=== PATIENT | male | born 1970 | race Caucasian/White ===

== ENCOUNTER 2017-01-08 06:48 | Outpatient (CLI) | payer MEDICARE ==
[~2017-01-08] VITALS: Ht 182.9 cm; Wt 119.0 kg
--- NOTE | ~2017-01-08 | CATH ---
Cardiac Diagnostic + PCI Report Demographics Patient Name EDD Yadav Gender Male Date of 1970 Age 46 year(s) Patient Number [id number] Date of Study 01/08/2017 Visit Number [id number] Room Number G6308 [place] [id number] Ht 182.88 cm Wt 111.2 kg Referring Sophie Clifford MD Primary Physician Physician Performing Sophie Clifford MD Secondary Physician Physician Diagnostic Sophie Clifford MD Assisting Physician Physician Interventional Sophie Clifford MD Physician Director Account Management Physician Findings and Conclusions Diagnostic Findings and Conclusion 2 vessel disease High grade RCA stenosis. Diagnostic Recommendations PTCA RCA. Interventional Findings and Conclusion 0.019 Prowater. 3.5 x 15 Emerge, 4.0 x 15 Emerge. 4.0 x 10 Flextome cutting balloon to 4.2. Interventional Recommendations Post Angioseal. Risk Factor modification. Procedure Description The patient was brought to the diagnostic cardiac catheterization-EP laboratory in the fasting, non-sedated state. Informed consent was obtained in the written and verbal form after the risks and benefits were explained. The patient had no further questions and agreed to proceed. The planned puncture-incision site(s) were shaved and prepped with ChloraPrep and draped in the usual sterile manner. Conscious sedation, supplemental oxygen, and pain control medications were delivered by a registered nurse under physician guidance. Surface ECG rhythm, blood pressure measurement, and pulse oximetry were monitored throughout the procedure. Arterial access. The access site was infiltrated with lidocaine. The vessel was entered with the Seldinger technique. A sheath was advanced into the vessel and used for catheter placement. Selective left coronary angiography. A catheter was advanced into the left coronary vessel ostium under Fluoroscopic guidance. Contrast was injected by hand. Images were obtained in multiple projections. Selective right coronary angiography. A catheter was advanced into the right coronary vessel ostium under fluoroscopic guidance. Contrast was injected by hand. Images were obtained in multiple projections. Left heart catheterization with ventriculography. A catheter was advanced across the aortic valve to the left ventricle under fluoroscopic guidance. Resting hemodynamics were obtained. With the catheter at the left ventricular apex, contrast was injected. Images were obtained in PALAUAN projections. Post-ventriculography LV pressure was obtained. The catheter was gradually withdrawn into the aorta with continuous pressure recording. Angioplasty: A guiding catheter was used to intubate the vessel. A 0.14 wire was used to cross the lesion. A balloon was positioned across the lesion and inflated. Post placement angiograms were performed. Arterial artery hemostasis was achieved. The patient was transferred to a regular nursing floor via cart accompanied by a nurse. The patient left the laboratory in stable condition. Diagnostic Cath Status: Elective Interventional Cath Status: Elective Procedure Procedure Type PCI procedure:PTCA:, RCA Indications: Chest pain. The procedure was explained in detail to the patient. Risks, complications and alternative treatments were reviewed. Written consent was obtained. Medications Reviewed with Patient prior to Procedure. Angiographic Findings Dominance: Mixed Cardiac Arteries and Lesion Findings LMCA: Normal (0% Stenosis).Large, normal. LAD: competitive flow. Diagonal small, ok. Lesion on Mid LAD: 70% stenosis .The lesion was discrete.Culprit lesion. LCx: Normal (0% Stenosis).Large, dominant, normal. OM 1 small. OM2 large, normal. RCA: Large, previous stents. Mid 90-95% ISR. Distal good.There is a previous stent on Dist RCA. There is a previous stent on Mid RCA. Lesion on Mid RCA: Mid subsection.95% stenosis 15 mm length reduced to 0%. Pre procedure MATTEO III flow was noted. Post Procedure MATTEO III flow was present. The guidewire cross was successful.The lesion was diagnosed as a high risk lesion.Culprit lesion. The lesion was previously treated on 10/03/2016 with the following techniques: a balloon and drug eluting stent. This is in-stentrestenosis. Treatment results:Interventional treatment was successful. Devices used - Prowater Wire .014 x 180. Number of passes: 1. - Emerge Balloon 3.5 x 15. 2 inflation(s) to a max pressure of: 12 selma. - Emerge Balloon 4.0 x 15. 2 inflation(s) to a max pressure of: 12 selma. - Flextome Balloon 4.0 x 10. Diameter: 4 mm. Length: 10 mm. 2 inflation(s) to a max pressure of: 11 selma. Cardiac Grafts - There is a graft that originates at the CORTES and attaches to the Dist LAD (CORTES - LAD. Patent with with disease. [place] LAD small.). - There is a graft that originates at the Aorta Left and attaches to the 1st Diag (SVG-Diag large, normal. ). Coronary Tree Procedure Data Procedure Date Date: 01/08/2017Start: 09:31 AMEnd: 10:21 AM Entry Locations - Retrograde Percutaneous access was performed through the Right Femoral artery (Primary location). A 6 Fr sheath was inserted. Hemostasis was successfully obtained using Angio-Seal STS PLUS (St. Krish). Closure Comments: Deployed by RT. Gogo. Procedure Medications Order and Administration + + + + + !Time !Medication !Dosage !Route ! + + + + + !01/08/2017 09:28 !Fentanyl !50 mcg !I.V. ! !AM ! ! ! ! + + + + + 01/08/2017 09:31 !Versed !1 mg !I.V. ! !AM ! ! ! ! + + + + + 01/08/2017 09:47 !Angiomax (Bivalirudin) !82.5 mg !I.V. bolus ! !AM !(ACC_5) ! ! ! + + + + + !01/08/2017 09:47 !Angiomax (Bivalirudin) !1.75 mg/kg/hr!I.V. drip ! !AM !(ACC_5) ! ! ! + + + + + !01/08/2017 09:55 !Nipride !50 mcg !I.C. ! !AM ! ! ! ! + + + + + !01/08/2017 10:00 !Nipride !50 mcg !I.C. ! !AM ! ! ! ! + + + + + !01/08/2017 10:05 !Nipride !50 mcg !I.C. ! !AM ! ! ! ! + + + + + !01/08/2017 10:11 !Nipride !75 mcg !I.C. ! !AM ! ! ! ! + + + + + !01/08/2017 10:13 !Angiomax (Bivalirudin) ! !I.V. drip ! !AM !(ACC_5) ! ! ! + + + + + Devices Used - A6 Fr. BS JL 4 Diag. Catheterwas used for:Left coronary angiography. - A6 Fr. BS JR 4 Diag. Catheterwas used for:Right coronary angiography. - A6 Fr. BS IMT Diag. Catheterwas used for:CORTES. - A6 Fr. BS Angled Pigtail Diag. Catheterwas used for:LV Pressures. - A6 Fr. JR4 Guide Catheterwas used for:RCA Intervention. Contrast Material - Isovue [id number] ml Fluoroscopy Time: Diagnostic: 12:24 minutes. Total: 12:24 minutes. Fluoroscopy Dose: Diagnostic: 2026 mGy. Total: 2026 mGy. Estimated Blood Loss: 5.2 ml. Additional [facility] PCI Information PCI Indication:PCI for high risk Non-STEMI or unstable angina. Medical History Allergies - No known allergies. Risk Factors The patient risk factors include:prior PCI on 10/03/2016; prior CABG on 07/16/2011;hypertension, family history of premature CAD, last creatinine: 1.1 mg/dl, creatinine clearance: 131.98 ml/min, dyslipidemia and former tobacco use. Admission Data Admission Date: 01/08/2017 Admission Time: 06:48 AM Admit Source: Other Insurance Payors: Medicare. Admission Medications + +------+------+ + + + + !Medication !Dosage!Times !Last !Last !Administered !Comments ! ! ! !Per !Delivery !Delivery ! ! ! ! ! !Day !Date !Time ! ! ! + +------+------+ + + + + !Aspirin ! ! ! ! !Yes ! ! !(any) ! ! ! ! ! ! ! + +------+------+ + + + + !Beta ! ! ! ! !Yes ! ! !Vu ! ! ! ! ! ! ! !(any) ! ! ! ! ! ! ! + +------+------+ + + + + !Prasugrel ! ! ! ! !Yes ! ! + +------+------+ + + + + !Statin ! ! ! ! !Yes ! ! !(any) ! ! ! ! ! ! ! + +------+------+ + + + + Clinical Evaluation Leading to Procedure - The patient's CAD presentation was assessed as: Unstable angina. - The patient's anginal syndrome during the past two weeks was assessed as: Class III according to the [place] Cardiovascular Society Classification System (CCS). Anti-anginal medications were prescribed during the past two weeks. The medications are: Beta Blockers, Long Acting Nitrates and Ranolazine. VA LV function assessed as:Normal. Ejection Fraction - Method: LV gram. EF%: 60. Hemodynamics Condition: Rest Estimated: Heart Rate: 53 bpm Pressures (mmHg) +-----+ + !Site !Pressure ! +-----+ + !AO !94/62 (77) ! +-----+ + !AO !87/62 (74) ! +-----+ + !AO !108/69 (87) ! +-----+ + !LV !116/0 ,36 ! +-----+ + !LV !117/-2 ,24 ! +-----+ + !LV !134/5 ,24 ! +-----+ + !LV !109/3 ,26 ! +-----+ + !LV !119/10 ,21 ! +-----+ + !LV !114/13 ,24 ! +-----+ + !AO !121/72 (94) ! +-----+ + !LV !114/13 ,24 ! +-----+ + Valve Gradients and Areas + +---------+---------+---------+ +---------+ + !Valve !Peak !Mean !Area !Index !Flow !Source ! + +---------+---------+---------+ +---------+ + !Aortic !0 !0 ! ! ! ! ! + +---------+---------+---------+ +---------+ + !Aortic !0 !0 ! ! ! ! ! + +---------+---------+---------+ +---------+ + Shunts Oxygen Values O2 Capacity 205.36 Discharge Data Discharge Date: 01/09/2017 Hospital Status: Outpatient Signatures dtt: Darrin Barrios (cardio) dtd: 01/08/17 0931 Physician Self Edit
[~2017-01-08 06:48] MED LIST: ASPIRIN325 MG PO; CRESTOR20 MG PO; DURAGESIC 25MC25 MCG TOP; DURAGESIC 50MC50 MCG TOP; DURAGESIC 75MC75 MCG TOP; EFFIENT10 MG PO; HYDROCODON-ACE1 EAC4 PO; IMDUR30 MG PO; IMDUR60 MG PO; KLONOPIN0.5 M1 PO; LAMICTAL XR100 MG PO; LAMICTAL XR50 MG PO; LIPITOR20 M1 PO; LIPITOR80 MG PO; LOPRESSOR25 MG PO; LOPRESSOR50 M1 PO; NEURONTIN100 MG PO; NICOTINE PATCH1 EAC1 TOP; NITRO-DUR1 EAC1 TOP; NITROSTAT 0.40.4 MG SL; NITROSTAT0.4 MG SL; NORCO 10-325 T1 EACH PO; NORVASC2.5 MG PO; PLETAL (NON-FO100 MG PO; PROTONIX40 MG PO; RANEXA1000 MG PO; RISPERDAL1 MG PO; RISPERDAL2 MG PO; THERAGRAN-M1 TAB PO; TYLENOL325 MG PO; XARELTO10 MG PO; XARELTO20 MG PO; ZANAFLEX2 MG PO; ZETIA10 MG PO; ZOLOFT100 M1 PO; ZOLOFT50 MG PO
--- NOTE | 2017-01-08 16:20 | NUR ---
PATIENT HAD A HEART CATH THIS AM, THEY BALLOONED AREAS OF THE RCA THAT HAD STENTS ALREADY IN PLACE. THEY ACCESSED THE RIGHT GROIN. PLAN FOR PATIENT TO DISCHARGE TOMORROW AM. GROIN IS SOFT WITH A SMALL AMOUNT OF DRAINAGE PRESENT.PATIENT STATES THAT THE GROIN IS TENDER TO PALPATION. NO HEMATOMAS ARE NOTED.
[2017-01-09 03:23] LABS: BASOPHIL % 0.4 %; EOSINOPHIL # 0.2 K/uL (0.0-0.5); EOSINOPHIL % 4.1 %; HEMATOCRIT 36.5 % (37.0-53.0); HEMOGLOBIN 12.2 g/dL (12.0-17.0); IMMATURE GRANULOCYTE % 0.2 %; LYMPHOCYTE # 1.6 K/uL (0.8-4.0); LYMPHOCYTE % 34.7 %; MCH 31.2 pg (27.0-34.0); MCHC 33.4 gm/dL (32.0-36.5); MCV 93.4 fl (83.0-98.0); MONOCYTE # 0.4 K/uL (0.0-1.0); MONOCYTE % 8.5 %; MPV 9.8 fl (9.4-12.4); NEUTROPHIL # (ANC) 2.4 K/uL (1.4-9.0); NEUTROPHIL % 52.1 %; NRBC % 0 /100WBC (0-0.00); PLATELET COUNT 168 K/uL (150-450); RBC 3.91 M/uL (4.00-6.00); RDW-CV 12.3 % (11.9-14.6); WBC 4.6 K/uL (4.0-11.0)
[2017-01-09 03:42] LABS: ALBUMIN 3.4 gm/dL (3.5-5.0); ALK PHOS 115 IU/L (33-138); ALT 21 IU/L (12-78); ANION GAP 11.8 (10.0-19.0); AST 14 IU/L (10-40); BLOOD UREA NITROGEN 12 mg/dL (6-24); CALCIUM 8.4 mg/dL (8.5-10.5); CHLORIDE 105 mMol/L (96-110); CO2 30 mMol/L (22-32); ESTIMATED GFR (MDRD EQUATION) > 60; POTASSIUM 4.8 mMol/L (3.7-5.1); SODIUM 142 mMol/L (135-145); TOTAL BILIRUBIN 0.3 mg/dL (0.0-1.5); TOTAL PROTEIN 6.3 g/dL (6.0-8.4)
--- NOTE | 2017-01-09 04:51 | NUR ---
Pt a/o x4. VSS on RA. Metoprolol and amlodipine held at hs d/t hr 58 and sbp 112 (pt refused). Given norco 1.5 tabs q4 hours prn- 1st dose for r groin pain, 2nd dose at 0230ish for chronic back pain. R groin site with drainage-no changes throughout shift. Pt denies CMS changes to RLE. Plan:DC today
== END 2017-01-09 10:20 | disposition disaster alternative care site (69) ==
LOC: GPCU 06:48 → GCAT 06:48 → GPOC 07:00 → GPCU 10:09 → GPOC 15:00 → GCAT 01-09 10:20
PROVIDERS: Internal Medicine Interventional Cardiology
PROC: B2181ZZ Fluoroscopy of Left Internal Mammary Bypass Graft using Low Osmolar Contrast (ICD-10-PCS; principal; 2017-01-08)
PROC: B2121ZZ Fluoroscopy of Single Coronary Artery Bypass Graft using Low Osmolar Contrast (ICD-10-PCS; principal; 2017-01-08)
PROC: B2111ZZ Fluoroscopy of Multiple Coronary Arteries using Low Osmolar Contrast (ICD-10-PCS; principal; 2017-01-08)
PROC: B2151ZZ Fluoroscopy of Left Heart using Low Osmolar Contrast (ICD-10-PCS; principal; 2017-01-08)
PROC: 4A023N7 Measurement of Cardiac Sampling and Pressure, Left Heart, Percutaneous Approach (ICD-10-PCS; principal; 2017-01-08)
PROC: 02703ZZ Dilation of Coronary Artery, One Artery, Percutaneous Approach (ICD-10-PCS; principal; 2017-01-08)
DX: T82.855A Stenosis of coronary artery stent, initial encounter (principal); I25.110 Atherosclerotic heart disease of native coronary artery with unstable angina pectoris; I10 Essential (primary) hypertension; E78.5 Hyperlipidemia, unspecified; K21.9 Gastro-esophageal reflux disease without esophagitis; Y71.1 Therapeutic (nonsurgical) and rehabilitative cardiovascular devices associated with adverse incidents; Z79.01 Long term (current) use of anticoagulants; Z87.891 Personal history of nicotine dependence; Z82.49 Family history of ischemic heart disease and other diseases of the circulatory system; Z79.82 Long term (current) use of aspirin; Z79.899 Other long term (current) drug therapy; Z86.711 Personal history of pulmonary embolism; Z95.1 Presence of aortocoronary bypass graft
CPT/HCPCS: C1725; C1760; C1769; C1887; J0583; J1644; J2001; J2250; J3010; J7030; J7060

== ENCOUNTER 2017-02-15 13:00 | Observation (INO) | payer MEDICARE ==
[~2017-02-15] VITALS: Ht 182.9 cm; Wt 117.6 kg
--- NOTE | ~2017-02-15 | HP ---
PATIENT'S NAME: MANSOOR PUGA [facility] AGE: 46 Y [address] ROOM: [facility] [place] [place] [address] [facility] ADMIT DATE: 02/15/2017 History & Physical DISCHARGE DATE: FAMILY PHYSICIAN: PHYSICIAN, UNKNOWN ATTENDING PHYSICIAN: Maria D Gallegos DATE OF SERVICE: REASON FOR REQUEST: Chest pain. HISTORY OF PRESENT ILLNESS: This is a 46-year-old well-known to Dr. Hudson with history of coronary artery disease with multiple stents placed. He has also undergone open heart surgery in 2010. He underwent PTCA of the RCA in December of this year. He also carries a history of pulmonary embolus and bipolar disease. He reports that he has been having a lot of chest discomfort that has progressively gotten worse. Recently, he started noticing that he has increased shortness of breath especially with going up the stairs; therefore, it made him very concerned and so he presented to the emergency room and was transferred to [facility] for further evaluation. He describes the pain as a heaviness. He denies being sweaty, nauseous, or short of breath at rest. He states that the chest pain sometimes will wake him up around 4 or 6 o'clock in the morning as well. He is a functional class III. He denies any PND or orthopnea. He denies any increased peripheral edema. There is no report of palpitations, lightheadedness, or dizziness. He does complain of a lot of back pain and recently had surgery on his right hip. He has been on fentanyl and hydrocodone for these 2 pains. There is no history of myocardial infarction or rheumatic fever. ALLERGIES: NONE TO MEDICATION. CURRENT HOME MEDICATIONS: 1. Aspirin 325 mg daily. 2. Clonazepam 0.5 mg twice a day. 3. Isosorbide mononitrate 60 mg twice a day. 4. Lamotrigine 100 mg twice a day. 5. Protonix 40 mg everyday. 6. Plavix 75 mg everyday. 7. Risperidone 2 mg every night at bedtime. 8. Zoloft 100 mg daily. 9. Amlodipine 2.5 mg at bedtime. 10. Metoprolol 25 mg twice a day. 11. Atorvastatin 80 mg everyday. PATIENT'S NAME: MANSOOR PUGA [facility] AGE: 46 Y [address] ROOM: [address] [address] LOCATION: [facility] ADMIT DATE: 02/15/2017 History & Physical DISCHARGE DATE: FAMILY PHYSICIAN: PHYSICIAN, UNKNOWN ATTENDING PHYSICIAN: Maria D Gallegos 12. Hydrocodone and acetaminophen 7.5/325 mg every 4 hours as needed for pain. 13. Nitroglycerin sublingual p.r.n. 14. Fentanyl patch 50 mcg on for 72 hours. 15. Risperidone 1 mg in the morning and an extra 50 mg of Zoloft daily. PAST MEDICAL HISTORY: 1. ACL repair, right ulnar nerve entrapment release. 2. Tonsillectomy. 3. Back fusion of L5 and S1. 4. Hiatal hernia. 5. Inguinal hernia repair. 6. History of bipolar disease. 7. History of pulmonary embolus that occurred spontaneously about in 2014. 8. Chronic back pain. 9. Gastroesophageal reflux disease. 10. Coronary artery disease. 11. Hypertension. 12. Hyperlipidemia. 13. Chronic tobacco use in the form of chew. SOCIAL HISTORY: He is an ex-smoker, but uses chew daily. He denies abusing alcohol or illicit drugs. FAMILY HISTORY: Strong for premature myocardial infarction in his dad at the age of 39. REVIEW OF SYSTEMS: A 12-point review of systems reveals following positives: 1. Corrective lenses. 2. Positive history of heartburn. 3. Hiatal hernia repair as mentioned in 2013. 4. History of pulmonary embolus of the right lung in 2014. 5. History of internal hemorrhoids noted by colonoscopy. 6. Bipolar disease and anxiety. 7. Complaints of chest discomfort. PHYSICAL EXAMINATION: VITAL SIGNS: Heart rates in the 60s, blood pressure is in 120s/80s, and O2 sats 94. HEENT: His head is normocephalic and atraumatic. Eyes: Pupils equal, round, and react briskly to light. EOMs are intact. NECK: Soft and supple. No lymphadenopathy or thyromegaly. JVD is flat. CHEST: Has a substernal scar noted. PATIENT'S NAME: MANSOOR PUGA [facility] AGE: 46 Y [address] ROOM: [address] [address] LOCATION: [facility] ADMIT DATE: 02/15/2017 History & Physical DISCHARGE DATE: FAMILY PHYSICIAN: PHYSICIAN, UNKNOWN ATTENDING PHYSICIAN: Maria D Gallegos CV: Regular with a normal S1, S2 without murmur, rub, or click. ABDOMEN: Soft. Bowel sounds are present. EXTREMITIES: No peripheral edema, no clubbing, and no cyanosis. ASSESSMENT: 1. Coronary artery disease with history of in-stent restenosis now with recurrent chest pain, negative enzymes, and EKG this morning in [place]. We will plan on a left heart catheterization in the morning. Risk and benefits have been explained and the patient is in agreement and willing to proceed with that cath. We will initiate heparin therapy. 2. Dyslipidemia. We will continue with the statin therapy. 3. Chronic tobacco use. He is using chew. We would certainly recommend him working on cessation. This patient has been seen and assessed by Dr. Rodrigo Hudson, assessment and plan, physical exam, and history of present illness are per Dr. Rodrigo Hudson. We would like to thank Dr. Patel for allowing us to participate in the patient's care. Further recommendations will be forthcoming as information becomes available. ANGY MAHAN APRN FOR IDALIA HUDSON MD TGP/modl /[id number] D: [id number] T: [id number] HISTORY & PHYSICAL
--- NOTE | ~2017-02-15 | CATH ---
Cardiac Diagnostic + PCI Report Demographics Patient Name EDD Yadav Gender Male Date of 1970 Age 46 year(s) Patient Number [id number] Date of Study 02/16/2017 Visit Number [id number] Room Number G6333 [place] [id number] Ht 182.8 cm Wt 115.7 kg Referring Sophie Clifford MD Primary Physician Physician Performing Sophie Clifford MD Secondary Physician Physician Diagnostic Sophie Clifford MD Assisting Physician Physician Interventional Sophie Clifford MD Physician Paymaster Of Purses Physician Findings and Conclusions Diagnostic Findings and Conclusion 2 vessel CAD ISR RCA Diagnostic Recommendations PCI RCA Interventional Findings and Conclusion 0.014 Prowater 3.75x10 flextome to 3.9 4x15 Emerge NC to 4.19 Interventional Recommendations DAPT Routine post perclose Procedure Description The patient was brought to the diagnostic cardiac catheterization-EP laboratory in the fasting, non-sedated state. Informed consent was obtained in the written and verbal form after the risks and benefits were explained. The patient had no further questions and agreed to proceed. The planned puncture-incision site(s) were shaved and prepped with ChloraPrep and draped in the usual sterile manner. Conscious sedation, supplemental oxygen, and pain control medications were delivered by a registered nurse under physician guidance. Surface ECG rhythm, blood pressure measurement, and pulse oximetry were monitored throughout the procedure. Arterial access. The access site was infiltrated with lidocaine. The vessel was entered with the Seldinger technique. A sheath was advanced into the vessel and used for catheter placement. Selective left coronary angiography. A catheter was advanced into the left coronary vessel ostium under Fluoroscopic guidance. Contrast was injected by hand. Images were obtained in multiple projections. Selective right coronary angiography. A catheter was advanced into the right coronary vessel ostium under fluoroscopic guidance. Contrast was injected by hand. Images were obtained in multiple projections. Selective SVG angiography. A catheter was advanced into the graft proximal anastomosis under fluoroscopic guidance. Contrast was injected by hand. Images were obtained in multiple projections. Angioplasty: A guiding catheter was used to intubate the vessel. A 0.14 wire was used to cross the lesion. A balloon was positioned across the lesion and inflated. Post placement angiograms were performed. Arterial artery hemostasis. Hemostasis was achieved. The patient was transferred to a regular nursing floor via cart accompanied by a nurse. The patient left the laboratory in stable condition. Interventional Cath Status: Urgent Procedure Procedure Type Diagnostic procedure:Angiography:, Coronary Angios w/Grafts PCI procedure:PTCA:, RCA Indications: Unstable angina. The procedure was explained in detail to the patient. Risks, complications and alternative treatments were reviewed. Written consent was obtained. Medications Reviewed with Patient prior to Procedure. Angiographic Findings Dominance: Mixed Cardiac Arteries and Lesion Findings LMCA: Normal (0% Stenosis).large normal LAD: LAD medium competitive flow distal. Diag medium normal. LCx: Normal (0% Stenosis).Circ large dominant. OM 1 medium ok. RCA: RCA large non dominant. Patent stents with ISR 70-75%.There is a previous stent on Dist RCA. There is a previous stent on Mid RCA Mid subsection showing focal ISR. Lesion on Mid RCA: Mid subsection.75% stenosis . Pre procedure MATTEO III flow was noted. Post Procedure MATTEO III flow was present. The guidewire cross was successful.Culprit lesion. Devices used - Prowater Wire .014 x 180. Number of passes: 1. - Flextome Balloon 3.75 x 10. Diameter: 3.75 mm. Length: 10 mm. 1 inflation(s) to a max pressure of: 12 selma. - NC Emerge Balloon 4.0 x 12. 2 inflation(s) to a max pressure of: 19 selma. Cardiac Grafts - There is a graft that originates at the CORTES and attaches to the Dist LAD. - There is a graft that originates at the Aorta Left and attaches to the 1st Diag (Patent). Coronary Tree Procedure Data Procedure Date Date: 02/16/2017Start: 11:15 AMEnd: 11:55 AM Entry Locations - Retrograde Percutaneous access was performed through the Right Femoral artery (Primary location). A 6 Fr sheath was inserted. Unsuccessful closure attempt was performed using: Angio-Seal STS PLUS (St. Krish). Hemostasis was successfully obtained using Perclose ProGlide (Beauchamp). Closure Comments: Angioseal deployed by Jessica hutchinson. Perclose deployed by Adam. . Procedure Medications Order and Administration + + + + + !Time !Medication !Dosage !Route ! + + + + + !02/16/2017 11:12 !Versed !2 mg !I.V. ! !AM ! ! ! ! + + + + + !02/16/2017 11:12 !Fentanyl !50 mcg ! ! !AM ! ! ! ! + + + + + !02/16/2017 11:25 !Angiomax (Bivalirudin) !85 mg !I.V. bolus ! !AM !(ACC_5) ! ! ! + + + + + !02/16/2017 11:26 !0.9% NaCl !250 ml/hr !I.V. bolus ! !AM ! ! ! ! + + + + + !02/16/2017 11:28 !Angiomax (Bivalirudin) !1.75 mg/kg/hr!I.V. drip ! !AM !(ACC_5) ! ! ! + + + + + !02/16/2017 11:35 !Angiomax (Bivalirudin) ! !I.V. drip ! !AM !(ACC_5) ! ! ! + + + + + !02/16/2017 11:43 !0.9% NaCl !125 ml/hr !I.V. bolus ! !AM ! ! ! ! + + + + + !02/16/2017 11:43 !Heparin (ACC_3) ! ! ! !AM ! ! ! ! + + + + + Devices Used - A6 Fr. BS JL 4 Diag. Catheterwas used for:Left coronary angiography. - A6 Fr. BS JR 4 Diag. Catheterwas used for:Right coronary angiography. - A6 Fr. JR4 Guide Catheterwas used for:RCA Intervention. Contrast Material - Isovue [id number] ml Fluoroscopy Time: Diagnostic: 9:00 minutes. Total: 9:00 minutes. Fluoroscopy Dose: Diagnostic: 1335 mGy. Total: 1335 mGy. Estimated Blood Loss: [address] [facility] PCI Information PCI Indication:PCI for high risk Non-STEMI or unstable angina. Medical History Performed Procedures and Imaging Results - No [facility] stress or imaging studies were performed. Allergies - No known allergies. Risk Factors The patient risk factors include:prior PCI;prior CABG;obesity, hypertension and dyslipidemia. Admission Data Admission Date: 02/15/2017 Admission Time: 02:23 PM Admit Source: Transfer [facility] facility Insurance Payors: Medicare. Admission Medications + +------+------+---------+---------+ + + !Medication !Dosage!Times !Last !Last !Administered !Comments ! ! ! !Per !Delivery !Delivery ! ! ! ! ! !Day !Date !Time ! ! ! + +------+------+---------+---------+ + + !Beta Vu ! ! ! ! !Yes ! ! !(any) ! ! ! ! ! ! ! + +------+------+---------+---------+ + + !Aspirin (any) ! ! ! ! !Yes ! ! + +------+------+---------+---------+ + + !Statin (any) ! ! ! ! !Yes ! ! + +------+------+---------+---------+ + + !Low Molecular ! ! ! ! !Yes ! ! !Weight Heparin! ! ! ! ! ! ! !(any) ! ! ! ! ! ! ! + +------+------+---------+---------+ + + !Clopidogrel ! ! ! ! !Yes ! ! + +------+------+---------+---------+ + + Clinical Evaluation Leading to Procedure - The patient's CAD presentation was assessed as: Unstable angina. - The patient's anginal syndrome during the past two weeks was assessed as: Class IV according to the [place] Cardiovascular Society Classification System (CCS). Anti-anginal medications were prescribed during the past two weeks. The medications are: Beta Blockers, Ca channel Blockers and Long Acting Nitrates. Hemodynamics Condition: Rest Estimated: Heart Rate: 55 bpm Pressures (mmHg) +-----+ + !Site !Pressure ! +-----+ + !AO !117/73 (92) ! +-----+ + Discharge Data Discharge Date: 02/17/2017 Hospital Status: Inpatient Signatures dtt: Darrin Barrios (cardio) dtd: 02/16/17 1115 Physician Self Edit
--- NOTE | 2017-02-15 15:16 | NUR ---
PT is 46 y/o male admit for chest pain for . PT alert and oriented x3. No allergies. Came from [place] by ambulance. Resides with significant other. hx CABG,stents x12,htn,hypercholest,SOB,PE,GI bleed,gerd,bipolar. PT states he gets chest pain with activity and sometimes randomly at rest. Plan is for heart cath tmw am.
[2017-02-15] MEDS ORDERED: RISPERDAL2 MG PO (15:27)
[2017-02-15] MEDS ORDERED: PLAVIX75 MG PO (15:28)
[2017-02-15] MEDS ORDERED: PROVENTIL OR V6.7 GM INH (15:29)
[2017-02-15 16:05] LABS: BASOPHIL % 0.3 %; EOSINOPHIL # 0.2 K/uL (0.0-0.5); EOSINOPHIL % 2.7 %; HEMATOCRIT 40.7 % (37.0-53.0); HEMOGLOBIN 14.2 g/dL (12.0-17.0); IMMATURE GRANULOCYTE % 0.3 %; LYMPHOCYTE # 1.7 K/uL (0.8-4.0); LYMPHOCYTE % 26.8 %; MCH 31.1 pg (27.0-34.0); MCHC 34.9 gm/dL (32.0-36.5); MCV 89.1 fl (83.0-98.0); MONOCYTE # 0.4 K/uL (0.0-1.0); MONOCYTE % 6.1 %; MPV 9.9 fl (9.4-12.4); NEUTROPHIL % 63.8 %; NRBC % 0 /100WBC (0-0.00); PLATELET COUNT 171 K/uL (150-450); RBC 4.57 M/uL (4.00-6.00); RDW-CV 12.2 % (11.9-14.6); WBC 6.2 K/uL (4.0-11.0)
[2017-02-15 16:10] LABS: PROTIME 10.9 SECONDS (9.6-11.1)
[2017-02-15 16:16] LABS: CPK 104 IU/L (35-332)
--- NOTE | 2017-02-15 18:57 | NUR ---
Significant Event: CHEST PAIN MANAGED TO LEFT CHEST RADIATING TO LEFT ARM WITH HOME MEDICATIONS. NITRO SL AVAILABLE PRN. NOT GIVEN THIS SHIFT. VSS ON 2L O2 PER ACS PROTOCOL. AMBULATES MINIMAL ASSIST TO BATHROOM. NEEDS CLIPPER PREPPED TO BILATERAL GROINS AND NPO AFTER MN FOR CATH IN AM. HEPARIN GTT PER PROTOCOL INITIATED WITH CURRENT DOSE AT 1000 UNITS/HR VIA R) WRIST PIV. NS TO START AFTER MN TO RUN AT 100ML/HR. NEXT PTTHP AT 2330. Follow up: GROINS TO BE PREPPED. PERMITS TO BE SIGNED THAT ARE ON CHART. NPO AFTER MN. NS TO START AT MIDNIGHT TO RUN AT 100ML/HR. PTTHP FOR HEPARIN GTT TO BE DRAWN AT 2330.
[2017-02-15 21:33] LABS: CPK 103 IU/L (35-332)
--- NOTE | 2017-02-16 04:03 | NUR ---
Significant Event: VSS, PT AFEBRILE. UP TO BATHROOM WITH ONE ASSIST, OTHERWISE USES URINAL AT BEDSIDE. PT DOES CO PAIN IN HIS HIP AND BACK, GETTING SCHEDULED NORCO. CHEST PAIN UNCHANGED. NS RUNNING AT 100ML/HR, HEPARIN RUNNING AT 1200 UNITS/HR. NEXT PTTHP DUE AT 0600. PT ALERT AND ORIETNED, USES CALL LIGHT APPROPRIATELY. NPO SINCE MIDNIGHT, CLIPPER PREPPED FOR HEART CATH. Follow up:
--- NOTE | 2017-02-16 13:00 | NUR ---
Chart reviewed (was left by terrazzo laborer when patient was taken). Patient curently in terrazzo laborer.
--- NOTE | 2017-02-16 18:52 | NUR ---
PATIENT REQUESTED NICOTINE PATCH BE ORDERED THIS MORNING BEFORE HEART CATH. PATIENT ALSO REQUESTED LAMICTAL. LAMICTAL IR TAB WAS ORDERED SINCE WE DO NOT CARRY ER TAB. PATIENT LEFT FLOOR FROM 1055 TO 1210 FOR HEART CATH. HEPARIN WAS STOPPED AFTER HEART CATH FINISHED. PATIENT WAS ON 2 LITERS O2 BEFORE HEART CATH AND O2 WAS STOPPED BEFORE HE RETURNED. HEART CATH WAS PERFORMED ON RIGHT GROIN. DRESSED WITH GAUZE AND TEGADERM. DRESSING IN TACT AND DRY. SIGHT LOOKS CLEAN WITH NO SIGNS OF PROBLEMS. PATIENT REQUESTED PAIN MEDICATIONS EARLY FOR HIP PAIN OF 7, HOWEVER IT WAS TOO EARLY SO PATIENT USED ICE UNTIL NORCO WAS DUE AGAIN. PATIENT IS UP AD MICHEAL. PATIENTS BROTHER WAS IN FOR AWHILE THIS AFTERNOON AFTER THE HEART CATH. PATIENT IS RESTING IN BED.
--- NOTE | 2017-02-17 04:17 | NUR ---
Significant Event: PATIENT IS A/O X3. VSS. HR 50-60'S. SBP 100-110'S. AFEBRILE. 02 SATS IN MID 90'S ON RA. C/O ON/OFF PAIN TO RIGHT GROIN. GETS SCHEDULED 1.5 TABS NORCO Q4H WITH SOME PAIN RELIEF. LUNGS CLEAR TO CLEAR/DIM THROUGHOUT. PATIENT UP AD MICHEAL IN ROOM. VOIDS PER RESTROOM. RIGHT GROIN STILL SOFT. DRESSING C/D/I AND CSM WNL. IV TO RIGHT WRIST SL. Follow up: CONTINUE TO MONITOR. HOME IN AM.
[2017-02-17 04:23] LABS: BASOPHIL % 0.4 %; EOSINOPHIL # 0.2 K/uL (0.0-0.5); EOSINOPHIL % 3.5 %; HEMATOCRIT 37.2 % (37.0-53.0); HEMOGLOBIN 12.4 g/dL (12.0-17.0); IMMATURE GRANULOCYTE % 0.2 %; LYMPHOCYTE # 1.4 K/uL (0.8-4.0); LYMPHOCYTE % 27.2 %; MCH 30.5 pg (27.0-34.0); MCHC 33.3 gm/dL (32.0-36.5); MCV 91.4 fl (83.0-98.0); MONOCYTE # 0.4 K/uL (0.0-1.0); MONOCYTE % 7.2 %; MPV 10.2 fl (9.4-12.4); NEUTROPHIL # (ANC) 3.2 K/uL (1.4-9.0); NEUTROPHIL % 61.5 %; NRBC % 0 /100WBC (0-0.00); PLATELET COUNT 143 K/uL (150-450); RBC 4.07 M/uL (4.00-6.00); RDW-CV 12.1 % (11.9-14.6); WBC 5.2 K/uL (4.0-11.0)
[2017-02-17 05:00] LABS: ALBUMIN 3.4 gm/dL (3.5-5.0); ALK PHOS 120 IU/L (33-138); ALT 26 IU/L (12-78); ANION GAP 12.3 (10.0-19.0); AST 14 IU/L (10-40); BLOOD UREA NITROGEN 13 mg/dL (6-24); CALCIUM 8.6 mg/dL (8.5-10.5); CHLORIDE 106 mMol/L (96-110); CO2 26 mMol/L (22-32); ESTIMATED GFR (MDRD EQUATION) > 60; POTASSIUM 4.3 mMol/L (3.7-5.1); SODIUM 140 mMol/L (135-145); TOTAL BILIRUBIN 0.3 mg/dL (0.0-1.5); TOTAL PROTEIN 6.4 g/dL (6.0-8.4)
--- NOTE | 2017-02-17 10:27 | NUR ---
PATIENT GIVEN WRITTEN DISMISSAL INSTRUCTIONS INCLUDING NEW HOME MEDICATION LIST WITH PRESCRIPTIONS, FOLLOW-UP APPIONTMENTS TO BE SCHEDULED AND CLINIC CARD PROVIDED, DIET RESTRICTIONS AND ACTIVITY RESTRICTIONS SPECIFIC TO GROIN CLOSURE FOR HEART CATH. PATIENT STATES UNDERSTANDING OF DISMISSAL INSTRUCTIONS DISCUSSED WITH RN. TELEMETRY DC'D AND PIV REMOVED WITH GAUZE AND COBAN APPLIED. PATIENT DRESSED AND WALKED TO FRONT OF [facility] ENTRANCE WITH STUDENT RN, FAMILY MEMBER AND BELONGINGS AT 1005.
== END 2017-02-17 10:05 | disposition disaster alternative care site (69) ==
LOC: GPCU 14:23
PROVIDERS: Internal Medicine Interventional Cardiology; Nurse Practitioner Acute Care; ADMIT Internal Medicine Interventional Cardiology
PROC: B2111ZZ Fluoroscopy of Multiple Coronary Arteries using Low Osmolar Contrast (ICD-10-PCS; principal; 2017-02-16)
PROC: B2181ZZ Fluoroscopy of Left Internal Mammary Bypass Graft using Low Osmolar Contrast (ICD-10-PCS; principal; 2017-02-16)
PROC: 02703ZZ Dilation of Coronary Artery, One Artery, Percutaneous Approach (ICD-10-PCS; principal; 2017-02-16)
PROC: B2121ZZ Fluoroscopy of Single Coronary Artery Bypass Graft using Low Osmolar Contrast (ICD-10-PCS; principal; 2017-02-16)
DX: I25.110 Atherosclerotic heart disease of native coronary artery with unstable angina pectoris (principal); T82.855A Stenosis of coronary artery stent, initial encounter; Y71.1 Therapeutic (nonsurgical) and rehabilitative cardiovascular devices associated with adverse incidents; I10 Essential (primary) hypertension; E78.5 Hyperlipidemia, unspecified; F31.9 Bipolar disorder, unspecified; Z72.0 Tobacco use; M54.9 Dorsalgia, unspecified; G89.29 Other chronic pain; K21.9 Gastro-esophageal reflux disease without esophagitis; K44.9 Diaphragmatic hernia without obstruction or gangrene; F41.9 Anxiety disorder, unspecified; Z95.1 Presence of aortocoronary bypass graft; Z86.711 Personal history of pulmonary embolism; Z79.02 Long term (current) use of antithrombotics/antiplatelets; Z95.5 Presence of coronary angioplasty implant and graft; Z79.82 Long term (current) use of aspirin; Z79.891 Long term (current) use of opiate analgesic; Z79.899 Other long term (current) drug therapy; Z98.1 Arthrodesis status; Z82.49 Family history of ischemic heart disease and other diseases of the circulatory system
CPT/HCPCS: C1725; C1760; C1769; C1887; G0378; J0461; J0583; J1644; J2250; J3010; J7030; J7060